=== PATIENT | female | born 1990 | race Caucasian/White ===

== ENCOUNTER 2018-08-31 06:00 | Inpatient (IN) ==
[2018-08-31] MEDS ORDERED: *HR* Nalbuphine 10 MG/ML AMPUL IVP PRN (06:07)
[2018-08-31] MEDS ORDERED: Famotidine 20 MG/2 ML VIAL IVP PRN (06:07)
[2018-08-31] MEDS ORDERED: Naloxone 0.4 MG/ML INJ IVP PRN (06:07)
[2018-08-31] MEDS ORDERED: Penicillin G Potassium 5,000,000 UNIT in 0.9 % Sodium Chloride Mini Bag 100 ML IVPB ONE (06:07)
[2018-08-31] MEDS ORDERED: Metoclopramide 10 MG/2 ML VIAL IVP PRN (06:07)
[2018-08-31] MEDS ORDERED: miSOPROStol 25 MCG TABLET PO PRN (06:07)
[2018-08-31] MEDS ORDERED: Ondansetron 4 MG/2 ML VIAL IVP PRN (06:07)
[2018-08-31] MEDS ORDERED: Ringers Solution, Lactated 1,000 ML IVC SCH (06:15)
[2018-08-31 06:23] LABS: Hemoglobin 12.2 g/dL (11.5-15.4); Mean Corpuscular Volume 97.8 fL (83.0-100.0)
[2018-08-31 06:25] LABS: Basophils % 0.2 %; Eosinophils # 0.1 K/mcL (0.0-0.6); Eosinophils % 1.2 %; Hematocrit 35.6 % (35.3-44.9); Immature Granulocytes % 0.5 % (0-4); Immature Platelets 18.4 % (1.1-6.1); Lymphocytes # 1.7 K/mcL (0.6-4.6); Lymphocytes % 19.8 %; Mean Corpuscular HGB Conc 34.3 g/dL (31.6-35.5); Mean Corpuscular Hemoglobin 33.5 pg (28.0-33.3); Mean Platelet Volume 13.4 fL (9.4-12.4); Monocytes # 0.6 K/mcL (0.0-1.3); Monocytes % 6.8 %; Neutrophils # 6.1 K/mcL (1.6-8.9); Red Blood Count 3.64 M/mcL (3.82-4.97); Red Cell Distribution Width 12.6 % (11.5-14.5); Segmented Neutrophils % 71.5 %
[2018-08-31 06:27] LABS: Platelet Count 91 K/mcL (140-400)
[2018-08-31] MEDS ORDERED: D5% in 0.45% NACL 1,000 ML IVC SCH (06:45)
--- NOTE | 2018-08-31 06:46 | History & Physical Report ---
Date of Encounter: 08/31/18 Time of Encounter: 06:43 24 Hour HP Update - Instructions Instructions: If the History and Physical is less than 30 days old and was completed prior to A.M. admission and or procedure and has NOT been updated on calendar day of procedure please complete this update prior to performing procedure. - Update Patient reports changes in Medical Condition: No Changes in examination, assessment, or condition: No Changes in Medication: No Preop tests/diagnostics Reviewed: Yes Surgery Remains Indicated: Yes Consent for Planned Operative Procedure(s) Verified: Yes Review of Patient reveals the following changes:: Platelet count 91,000. Plan to proceed with cytotec IOL. SVE 2-3/80/-2.
[2018-08-31] MEDS ORDERED: EPHEDrine 50 MG/ML VIAL IVP PRN (07:43)
[2018-08-31] MEDS ORDERED: *HR* Ropivacaine/PF 0.2% 20 ML VIAL EP ONE (07:43)
[2018-08-31] MEDS ORDERED: *HR* FentaNYL (PF) 100 MCG/2 ML VIAL EP ONE (07:43)
--- NOTE | 2018-08-31 07:43 | Anesthesia Evaluation PreOp ---
Date of Encounter: 08/31/18 Time of Encounter: 07:40 - Past History Planned Operation: luis carlos Cardiac History: Denies any Significant Hx Pulmonary History: Denies Any Significant HX [employer] History: Other (Anxiety, depression) Other Medical History: Denies Any Significant HX Anesthesia History: No Prior Anesthetic Complications, Past Anesthesia : Yes (39 weeks, ) Alcohol Use: none Drug use: none Medications and Allergies Vit No.129/Iron/FA [ Tablet] 1 each PO DAILY 10/01/15 [History] Ascorbic Acid [Vitamin C] 500 mg PO BID 08/08/18 [History] Ferrous Sulfate 325 mg PO BID 08/08/18 [History] Allergy/AdvReac Type Severity Reaction Status Date / Time No Known Allergies Allergy Verified 10/01/15 13:39 - Meds/Allergy Pre-op Review Medications Reviewed: Yes Allergies Reviewed: Yes Beta Blockers on Current Med List: No Anesthesia Results - Labs 08/31/18 06:07 Anesthesia Exam O2 Sat Height 1.65 m Height 1.65 m Weight 74.6 kg Weight 74.6 kg Height: 65 Weight: 74 - HEENT Pupil (Motor): Pupils equal Mallampati: II Teeth: Normal Oral Opening: Greater than 3 - [employer] LOC: Oriented [employer] Motor: Normal RUE, Normal LUE, Normal RLE, Normal LLE, Normal Face [employer] Sensory: Normal: RUE, LUE, RLE, LLE, Face - Cardiac Rhythm: Regular Murmur: None JVD: No Carotid Bruit: No - Pulmonary Breath Sounds: bilateral Clear Respiratory Effort: Symmetrical Anesthesia Assess/Plan ASA Score: 2 Level of consciousness: Cooperative Anesthetic Plan: Epidural Monitoring Plan: Standard Monitors Recovery Plan: PACU
[2018-08-31] MEDS ORDERED: Ropivacaine/PF 0.2% 500 MG/250 ML INFUS..BTL EP SCH (07:45)
[2018-08-31 08:59] LABS: Amphetamine Screen,Urine Negative ng/mL (Cutoff=1000); Barbiturate Screen,Urine Negative ng/mL (Cutoff=200); Benzodiazepines Screen,Urine Negative ng/mL (Cutoff=200); Cannabinoid Screen,Urine Negative ng/mL (Cutoff = 50); Cocaine Screen,Urine Negative ng/mL (Cutoff= 300); Opiate Screen,Urine Negative ng/mL (Cutoff=300); Phencyclidine Screen,Urine Negative ng/mL (Cutoff=25)
--- NOTE | 2018-08-31 09:05 | OB Labor Progress Note ---
Date of Encounter: 08/31/18 Time of Encounter: 09:03 Labor Progress Note - Subjective Subjective: The patient reports feeling contractions after her first dose of Cytotec. She is receiving her IV antibiotics for her positive GBS. After IV fluid bolus her contractions spaced out to every 3-4 minutes. - Vital Signs Vital Signs: Afebrile, vital signs stable - Cervix Cervix: 3/80/-1, vertex - Heart Tones Heart Tones: 140s baseline, CAT 1 - [place]: Every 4 minutes after first dose of 50 MCG's of Cytotec - Interventions Interventions: 39 week IUP with history of thrombocytopenia , platelets currently 91 here for induction of labor with positive GBS culture - Plan Plan: Patient has received her first dose of antibiotics. She consented to a Shepherd balloon which was placed with sterile technique and 60 mL of sterile solution placed into Shepherd balloon. Patient tolerated well. Continue induction of labor and GBS prophylaxis
[2018-08-31] MEDS: Penicillin G Potassium 2,500,000 UNIT in 0.9 % Sodium Chloride 100 ML IVPB SCH ×2 (10:03→14:32)
[2018-08-31] MEDS ORDERED: *HR* Ropivacaine/PF 0.2% 20 ML VIAL ONE (12:09)
[2018-08-31] MEDS ORDERED: *HR* FentaNYL (PF) 100 MCG/2 ML VIAL ONE (12:09)
[2018-08-31] MEDS ORDERED: Lidocaine -MPF 1% 5 ML AMPUL ONE (12:09)
[2018-08-31] MEDS ORDERED: Epidural Premix (fent/bupiv) 110 ML EP ONE (12:28)
--- NOTE | 2018-08-31 12:37 | Anesthesia Procedures ---
Addendum entered and electronically signed by Audi Gardner CRNA 08/31/18 22:41: Delivery Date: 08/31/18 Infant Delivery Time: 16:40 Addendum entered and electronically signed by Audi Gardner CRNA 08/31/18 13:06: Procedure end [id number] Original Note: Date of Encounter: 08/31/18 Time of Encounter: 12:35 Procedures: Anesthesia - Epidural/Spinal Patient ID/Chart reviewed: Yes Patient examined: Yes OB Eval: Contractions: Non-stressed pattern Consent Obtained: Yes Supplemental Oxygen: None/Room Air Site Prep: Aseptic Technique Patient position: upright Local Anesthetic: Lidocaine 1% Amount of Local Anesthetic used: 3 Touhy Needle Gauge: 18 Touhy Needle Depth (cm): 4 Test Dose (1.5% Lido + Epi): Volume given (mls): 32 Test Dose Result: Negative Loading Dose: Fentanyl (mcg): 100 Loading Dose: Other: 02% ropi 3cc Loading Dose Administered: Thru Touhy Needle Infusion Med: 0.125% Bupivacaine w/ 2 mcg/ml Fentanyl Infusion Rate (mls/hr): [address]: Tegaderm Interspace Used: L3-L4 Loss of Resistance (ALECIA): Yes Blood: No CSF: No Paresthesia: No
[2018-08-31] MEDS ORDERED: Epidural Premix (fent/bupiv) 110 ML EP SCH (12:45)
--- NOTE | 2018-08-31 13:08 | OB Labor Progress Note ---
Date of Encounter: 08/31/18 Time of Encounter: 13:00 Labor Progress Note - Subjective Subjective: The patient is comfortable after her epidural. - Vital Signs Vital Signs: Afebrile, vital signs stable - Cervix Cervix: 5-6/80/-1, vertex - Heart Tones Heart Tones: 140s baseline, CAT 1 - [place]: Contractions every 2-3 minutes - Interventions Interventions: 39 week IUP with thrombocytopenia in and positive GBS culture. - Plan Plan: Patient is undergoing an induction of labor and has received 50 mg of Cytotec at 0630. She is now status post an epidural and 2 doses of antibiotics. Amniotomy was performed and clear fluid seen. IUPC placed. Continue induction with vaginal delivery anticipated
[2018-08-31] MEDS ORDERED: Oxytocin 20 units/ LR 1000 mL 20 UNIT/1,000 ML BAG IVC SCH ×2 (15:00→19:34)
--- NOTE | 2018-08-31 17:16 | OB/GYN Procedure Note ---
Delivery - Delivery Date: 08/31/18 Provider: Emily Barnes Intrapartum events: none Delivery induction: thorpe, misoprostol Delivery augmentation: rupture of membranes, pitocin Delivery monitor: external FHT, external uterine, internal uterine Anesthesia: epidural Quantitated Blood Loss: 50 - Infant (s) Infant A Delivery Date: 08/31/18 Delivery Time: 16:40 Presentation: vertex Position: SEBAS Route of delivery: Gender: Male Viability: Viable Pounds: 7 Ounces: 11 Weight Gram: 3.48 kg at 1 minute: 8 at 5 mins: 9 Shoulder Dystocia: not encountered Specimens collected: cord blood Placenta: spontaneous Cord: 3 umbilical vessels - Repair Episiotomy: none Laceration Description: Labial (Right) - Complications Delivery complications: none Delivery comments: The patient was complete and pushing with epidural anesthesia with a spontaneous vaginal delivery in the SEBAS position of a vigorous male infant weighing 7 lbs. 11oz. with Apgars of 8 at 1 minute and 9 at 5 minutes. Infant was placed on the maternal abdomen and handed to the nursery care team. The cord was clamped and cut after pulsations ceased. Cord blood obtained. The placenta was delivered spontaneous and intact. Three-vessel cord confirmed. There was a right labial laceration which was repaired with 4-0 Monocryl in a running nonlocking fashion. Estimated blood loss 50 mL, complications none. Both mother and infant were recovering in stable condition in the LDR - Disposition Mom disposition: stable in LDR disposition: stable in LDR
[2018-08-31] MEDS ORDERED: Acetaminophen 325 MG TABLET PO PRN (19:34)
[2018-08-31] MEDS ORDERED: Ibuprofen 600 MG TABLET PO PRN (19:34)
[2018-08-31] MEDS ORDERED: Measles/Mumps/Rubella Vacc 0.5 ML VIAL SQ PRN (19:34)
[2018-09-01 06:52] LABS: Eosinophils % 0.3 %; Immature Granulocytes % 0.6 % (0-4)
[2018-09-01 06:54] LABS: Basophils % 0.1 %; Hematocrit 39.2 % (35.3-44.9); Hemoglobin 13.2 g/dL (11.5-15.4); Immature Platelets 17.1 % (1.1-6.1); Lymphocytes # 1.5 K/mcL (0.6-4.6); Lymphocytes % 12.2 %; Mean Corpuscular HGB Conc 33.7 g/dL (31.6-35.5); Mean Corpuscular Hemoglobin 33.6 pg (28.0-33.3); Mean Corpuscular Volume 99.7 fL (83.0-100.0); Mean Platelet Volume 13.3 fL (9.4-12.4); Monocytes # 0.9 K/mcL (0.0-1.3); Monocytes % 6.8 %; Platelet Count 82 K/mcL (140-400); Red Blood Count 3.93 M/mcL (3.82-4.97); Red Cell Distribution Width 12.7 % (11.5-14.5)
[2018-09-01] MEDS ORDERED: Prenatal Vit/FA 1 EACH TABLET PO SCH (09:00)
--- NOTE | 2018-09-01 09:56 | Discharge Summary ---
Date of Encounter: 09/01/18 Time of Encounter: 09:54 - Discharge Diagnosis (1) Vaginal delivery Priority: Primary Status: Acute Comments: S/P Vaginal delivery day 1 Pain well controlled Lochia light and without clots VSS Tolerating regular diet; passing flatus Voiding without difficulty Breast Feeding Discharge home today POC per consult with Dr White - Discharge Medications Prescriptions: Ibuprofen [Motrin] 600 mg PO Q6HR PRN #30 tablet PRN Reason: Cramping Breast Pump [BREAST PUMP] 1 each .ROUTE AD #1 each Docusate [Colace] 100 mg PO BID #30 capsule Ferrous Sulfate 325 mg PO DAILY #90 tablet Home Medications: Vit No.129/Iron/FA [ One Daily Tablet] 1 each PO DAILY 10/01/15 [History] Ascorbic Acid [Vitamin C] 500 mg PO BID 08/08/18 [History] Acetaminophen [Tylenol] 650 mg PO Q6HR PRN tablet 09/01/18 [Rx] Breast Pump [BREAST PUMP] 1 each .ROUTE AD #1 each 09/01/18 [Rx] Docusate [Colace] 100 mg PO BID #30 capsule 09/01/18 [Rx] Ferrous Sulfate 325 mg PO DAILY #90 tablet 09/01/18 [Rx] Ibuprofen [Motrin] 600 mg PO Q6HR PRN #30 tablet 09/01/18 [Rx] Allergies/Adverse Reactions: Allergy/AdvReac Type Severity Reaction Status Date / Time No Known Allergies Allergy Verified 10/01/15 13:39 Data Procedures and tests throughout hospitalization: Laboratory Tests 08/31/18 08/31/18 09/01/18 06:07 08:36 06:25 WBC 8.5 12.5 H RBC 3.64 L 3.93 Hgb 12.2 13.2 Hct 35.6 39.2 MCV 97.8 99.7 MCH 33.5 H 33.6 H MCHC 34.3 33.7 RDW 12.6 12.7 Plt Count 91 L 82 L MPV 13.4 H 13.3 H Immature Gran % 0.5 0.6 Seg Neutrophils % 71.5 80.0 Lymphocytes % 19.8 12.2 Monocytes % 6.8 6.8 Eosinophils % 1.2 0.3 Basophils % 0.2 0.1 Neutrophils # 6.1 10.0 H Lymphocytes # 1.7 1.5 Monocytes # 0.6 0.9 Eosinophils # 0.1 0.0 Basophils # 0.0 0.0 Immature Plt Fraction 18.4 H 17.1 H Urine Opiates Screen Negative Ur Barbiturates Screen Negative Ur Phencyclidine Scrn Negative Ur Amphetamines Screen Negative U Benzodiazepines Scrn Negative Urine Cocaine Screen Negative U Marijuana (THC) Screen Negative Ur Drug Screen Interp See Below Labs on day of discharge: Labs from last 24 hours 09/01/18 06:25 WBC 12.5 H RBC 3.93 Hgb 13.2 Hct 39.2 MCV 99.7 MCH 33.6 H MCHC 33.7 RDW 12.7 Plt Count 82 L MPV 13.3 H Immature Gran % 0.6 Seg Neutrophils % 80.0 Lymphocytes % 12.2 Monocytes % 6.8 Eosinophils % 0.3 Basophils % 0.1 Neutrophils # 10.0 H Lymphocytes # 1.5 Monocytes # 0.9 Eosinophils # 0.0 Basophils # 0.0 Immature Plt Fraction 17.1 H Date of admission: 08/31/18 06:06 Primary care physician: Tyler Prado DO Consults: 08/31/18 19:34 Consult to [facility] [CONS] Routine Comment: Vaginal delivery, consult needed Discharging clinician: Lizet Hope Anticipated date of discharge: 09/01/18 - Patient Status Disposition: Home, Self-Care Condition: Good Functional capacity at discharge: independent ambulation Overall status at discharge: patient is progressing back to baseline - Discharge Instructions Follow Up With: Tyler Prado DO [Primary Care Provider] - Emily Barnes MD [Partnered Physician] - - Diet and Activity Activity: increase activity as tolerated Diet: regular diet Hospital Course Reason for admission: induction of labor, IUP at term Delivery: Episiotomy: none Laceration: other (Right labial lac) Other procedures: none complications: none Discharge diagnosis: IUP at term delivered baby: male Time Attestation: Total time spent providing and/or coordinating discharge services: Time Spent: Less than 30 minutes Exam - Constitutional Vitals: Temp Pulse Resp BP Pulse Ox 97.8 F 96 16 116/81 100 09/01/18 08:21 09/01/18 08:21 09/01/18 09:40 09/01/18 08:21 09/01/18 03:40 General appearance IM: cooperative, A&O X 3, pleasant - Respiratory Respiratory exam: Present: CTAB - Cardiovascular Cardiovascular exam IM: Present: RRR, +S1, +S2 - GI/Abdominal GI/Abdominal exam IM: normal bowel sounds, soft - Rectal Rectal exam: deferred - Uterine Tone: Firm Uterus Position: 1 Finger Below Umbilicus, Midline - Extremities Exam Extremities exam IM: Present: normal capillary refill, normal inspection, radial pulses palpable and symmetrical - Neurological Exam Neurological exam: alert, oriented X3
[2018-09-01 14:43] VITALS: BP 116/81
== END 2018-09-01 17:55 | disposition home or self-care (01) | DRG 807 ==
LOC: 1NENULAB 06:06 → 1NENUOBS 19:43
PROVIDERS: ADMIT Obstetrics & Gynecology; ATTEND Obstetrics & Gynecology

== ENCOUNTER 2020-06-05 10:00 | Inpatient (IN) ==
[2020-06-05] MEDS ORDERED: Lidocaine 1% 20 ML MDV ID PRN (10:14)
[2020-06-05] MEDS ORDERED: *HR* FentaNYL (PF) 100 MCG/2 ML VIAL IVP PRN (10:14)
[2020-06-05] MEDS ORDERED: Ondansetron 4 MG/2 ML VIAL IVP PRN (10:14)
[2020-06-05] MEDS ORDERED: Naloxone 0.4 MG/ML INJ IVP PRN (10:14)
[2020-06-05] MEDS ORDERED: Metoclopramide 10 MG/2 ML VIAL IVP PRN (10:14)
[2020-06-05] MEDS ORDERED: Azithromycin 500 MG in 0.9 % Sodium Chloride 250 ML IVPB ONE (10:14)
[2020-06-05] MEDS ORDERED: Famotidine 20 MG/2 ML VIAL IVP PRN (10:14)
[2020-06-05] MEDS ORDERED: Ringers Solution, Lactated 1,000 ML IVC SCH (10:15)
[2020-06-05 11:03] LABS: Hematocrit 38.1 % (35.3-44.9)
[2020-06-05 11:05] LABS: Basophils % 0.2 %; Eosinophils # 0.1 K/mcL (0.0-0.6); Hemoglobin 12.8 g/dL (11.5-15.4); Immature Granulocytes % 0.9 % (0-4); Immature Platelets 21.5 % (1.1-6.1); Lymphocytes # 1.4 K/mcL (0.6-4.6); Lymphocytes % 17.2 %; Mean Corpuscular HGB Conc 33.6 g/dL (31.6-35.5); Mean Corpuscular Volume 98.2 fL (83.0-100.0); Mean Platelet Volume 13.1 fL (9.4-12.4); Monocytes # 0.6 K/mcL (0.0-1.3); Monocytes % 6.9 %; Platelet Count 100 K/mcL (140-400); Red Blood Count 3.88 M/mcL (3.82-4.97); Red Cell Distribution Width 13.2 % (11.5-14.5); Segmented Neutrophils % 73.8 %; White Blood Count 8.1 K/mcL (4.3-11.1)
[2020-06-05 11:09] LABS: Amphetamine Screen,Urine Negative ng/mL (Cutoff=1000); Barbiturate Screen,Urine Negative ng/mL (Cutoff=200); Benzodiazepines Screen,Urine Negative ng/mL (Cutoff=200); Cannabinoid Screen,Urine Negative ng/mL (Cutoff = 50); Cocaine Screen,Urine Negative ng/mL (Cutoff= 300); Opiate Screen,Urine Negative ng/mL (Cutoff=300); Phencyclidine Screen,Urine Negative ng/mL (Cutoff=25)
[2020-06-05] MEDS ORDERED: EPHEDrine 50 MG/ML VIAL IVP PRN (11:42)
[2020-06-05] MEDS ORDERED: *HR* FentaNYL (PF) 100 MCG/2 ML VIAL EP ONE (11:42)
[2020-06-05] MEDS ORDERED: *HR* FentaNYL (PF) 100 MCG/2 ML VIAL ONE (11:44)
[2020-06-05] MEDS ORDERED: Epidural Premix (fent/bupiv) 110 ML EP SCH (11:45)
[2020-06-05] MEDS: Oxytocin 20 units/ LR 1000 mL 20 UNIT/1,000 ML BAG IVC SCH (12:11)
[2020-06-05] MEDS ORDERED: Penicillin G Potassium 5,000,000 UNIT in 0.9 % Sodium Chloride Mini Bag 100 ML IVPB ONE ×2 (12:12→19:30)
[2020-06-05] MEDS ORDERED: Penicillin G Potassium 2,500,000 UNIT in 0.9 % Sodium Chloride 100 ML IVPB SCH (16:00)
[2020-06-05] MEDS: Penicillin G Potassium 2,500,000 UNIT in 0.9 % Sodium Chloride 100 ML IVPB SCH (23:31)
[2020-06-06] MEDS: Penicillin G Potassium 2,500,000 UNIT in 0.9 % Sodium Chloride 100 ML IVPB SCH (04:00)
[2020-06-06] MEDS ORDERED: Ropivacaine/PF 0.2% 20 ML VIAL ONE (07:35)
[2020-06-06] MEDS ORDERED: *HR* FentaNYL (PF) 100 MCG/2 ML VIAL ONE (07:35)
[2020-06-06] MEDS: Oxytocin 20 units/ LR 1000 mL 20 UNIT/1,000 ML BAG IVC SCH (08:37)
[2020-06-06] MEDS ORDERED: Lanolin 7 G OINT...G. TP PRN (11:43)
[2020-06-06] MEDS ORDERED: Oxytocin 20 units/ LR 1000 mL 20 UNIT/1,000 ML BAG IVC SCH (11:43)
[2020-06-06] MEDS ORDERED: Acetaminophen 325 MG TABLET PO PRN (11:43)
[2020-06-06] MEDS ORDERED: Measles/Mumps/Rubella Vacc 0.5 ML VIAL SQ PRN (11:43)
[2020-06-06] MEDS ORDERED: Ibuprofen 600 MG TABLET PO PRN (11:43)
[2020-06-06] MEDS ORDERED: Rho Immune Globulin 1,500 UNIT SYRINGE IM PRN (11:43)
[2020-06-06] MEDS ORDERED: Benzocaine/Menthol 56 GM AEROSOL SPRAY TP PRN (11:43)
[2020-06-06] MEDS: Prenatal Vit/FA 1 EACH TABLET PO SCH (16:21)
[2020-06-07 07:20] LABS: Basophils % 0.2 %; Eosinophils # 0.1 K/mcL (0.0-0.6); Eosinophils % 1.1 %; Hematocrit 33.8 % (35.3-44.9); Hemoglobin 11.3 g/dL (11.5-15.4); Immature Granulocytes % 0.6 % (0-4); Immature Platelets 18.7 % (1.1-6.1); Lymphocytes # 1.9 K/mcL (0.6-4.6); Lymphocytes % 21.9 %; Mean Corpuscular HGB Conc 33.4 g/dL (31.6-35.5); Mean Corpuscular Volume 98.8 fL (83.0-100.0); Mean Platelet Volume 13.5 fL (9.4-12.4); Monocytes # 0.7 K/mcL (0.0-1.3); Monocytes % 7.8 %; Platelet Count 92 K/mcL (140-400); Red Blood Count 3.42 M/mcL (3.82-4.97); Segmented Neutrophils % 68.4 %; White Blood Count 8.8 K/mcL (4.3-11.1)
[2020-06-07 07:47] VITALS: BP 109/76
[2020-06-07] MEDS: Prenatal Vit/FA 1 EACH TABLET PO SCH (08:54)
== END 2020-06-07 12:30 | disposition home or self-care (01) | DRG 807 ==
LOC: 1NENULAB 10:13 → 1NENUOBS 06-06 11:05
PROVIDERS: ADMIT Obstetrics & Gynecology; ATTEND Obstetrics & Gynecology